=== PATIENT | female | born 1985 | race Caucasian/White ===

== ENCOUNTER 2017-09-30 13:21 | Inpatient (IN) | payer SELFPAY ==
[2017-09-30] MEDS ORDERED: hydrALAZINE 20 MG/ML VIAL. IVP (13:45)
[2017-09-30] MEDS: ONDANSETRON PF 4 MG/2 ML VIAL. IV ×2 (14:26→22:12)
[2017-09-30] MEDS: fentaNYL PF VIAL 100 MCG/2 ML VIAL IV ×2 (14:26→22:13)
[2017-09-30] MEDS: POTASSIUM CL 40MEQ IN 0.9%NACL 1,000 ML IV ×2 (14:44→22:39)
[2017-09-30] MEDS: PANTOPRAZOLE IV PUSH 40 MG VIAL. IVP (15:43)
[2017-09-30] MEDS: diphenhydrAMINE 50 MG/ML VIAL IVP (16:51)
[2017-09-30] MEDS: PROCHLORPERAZINE 10 MG/2 ML VIAL. IV (17:39)
[2017-10-01 04:41] LABS: ADD MAN DIFF? NO
[2017-10-01 05:09] LABS: BASO % 0 % (0-3); EOS # 0.1 x10^3/uL (0.0-0.7); EOS % 1 % (0-3); HEMATOCRIT 44.1 % (36.0-47.0); HEMOGLOBIN 15.4 g/dL (12.0-15.5); LYMPH # 3.5 x10^3/uL (1.0-4.8); LYMPH % 34 % (24-48); MEAN CORPUSCULAR HEMOGLOBIN 32 pg (25-35); MEAN CORPUSCULAR HGB CONC 35 g/dL (31-37); MEAN CORPUSCULAR VOLUME 91 fL (79-100); MONO % 10 % (0-9); NEUT # 5.5 x10^3uL (1.8-7.7); NEUT % 55 % (31-73); PLATELET COUNT 184 x10^3/uL (140-400); RED BLOOD COUNT 4.87 x10^6/uL (3.50-5.40); RED CELL DISTRIBUTION WIDTH 13.2 % (11.5-14.5); WHITE BLOOD COUNT 10.1 x10^3/uL (4.0-11.0)
[2017-10-01 06:01] LABS: ALBUMIN 3.4 g/dL (3.4-5.0); ALK PHOS 78 U/L (46-116); ALT (SGPT) 28 U/L (14-59); ANION GAP 13 (6-14); AST (SGOT) 23 U/L (15-37); BLOOD UREA NITROGEN 8 mg/dL (7-20); BUN/CREATININE RATIO 11 (6-20); CALCIUM 8.7 mg/dL (8.5-10.1); CARBON DIOXIDE 20 mmol/L (21-32); CHLORIDE 102 mmol/L (98-107); CREATININE 0.7 mg/dL (0.6-1.0); GFR 96.4; GLUCOSE 64 mg/dL (70-99); POTASSIUM 4.4 mmol/L (3.5-5.1); SODIUM 135 mmol/L (136-145); TOTAL BILIRUBIN 0.7 mg/dL (0.2-1.0); TOTAL PROTEIN 6.9 g/dL (6.4-8.2)
[2017-10-01] MEDS: ONDANSETRON PF 4 MG/2 ML VIAL. IV ×3 (06:32→16:59)
[2017-10-01] MEDS: fentaNYL PF VIAL 100 MCG/2 ML VIAL IV ×3 (06:32→21:06)
[2017-10-01] MEDS: POTASSIUM CL 40MEQ IN 0.9%NACL 1,000 ML IV ×2 (06:42→13:41)
[2017-10-01] MEDS: PANTOPRAZOLE IV PUSH 40 MG VIAL. IVP (07:30)
[2017-10-01 07:48] LABS: POC GLUCOSE 68 mg/dL (70-99)
[2017-10-01] MEDS: SINCALIDE 1.54 MCG in IV NORMAL SALINE 50ML 30 ML IV (10:00)
[2017-10-01] MEDS: PROCHLORPERAZINE 10 MG/2 ML VIAL. IV ×2 (13:16→19:50)
[2017-10-01] MEDS: METOCLOPRAMIDE HCL 10 MG/2 ML VIAL. IV (16:59)
[2017-10-02] MEDS: POTASSIUM CL 40MEQ IN 0.9%NACL 1,000 ML IV ×3 (01:11→16:51)
[2017-10-02] MEDS: ONDANSETRON PF 4 MG/2 ML VIAL. IV ×3 (06:48→19:51)
[2017-10-02] MEDS: fentaNYL PF VIAL 100 MCG/2 ML VIAL IV ×3 (06:49→19:51)
[2017-10-02] MEDS: PANTOPRAZOLE IV PUSH 40 MG VIAL. IVP (07:31)
[2017-10-02] MEDS: PROCHLORPERAZINE 10 MG/2 ML VIAL. IV (16:55)
[2017-10-03] MEDS: ONDANSETRON PF 4 MG/2 ML VIAL. IV (01:38)
[2017-10-03] MEDS: fentaNYL PF VIAL 100 MCG/2 ML VIAL IV ×2 (01:39→05:59)
[2017-10-03] MEDS: POTASSIUM CL 40MEQ IN 0.9%NACL 1,000 ML IV ×3 (01:40→10:02)
[2017-10-03] MEDS: PROCHLORPERAZINE 10 MG/2 ML VIAL. IV (06:00)
[2017-10-03 06:31] LABS: ANION GAP 7 (6-14); BLOOD UREA NITROGEN 4 mg/dL (7-20); CARBON DIOXIDE 25 mmol/L (21-32); CHLORIDE 104 mmol/L (98-107); CREATININE 0.8 mg/dL (0.6-1.0); GFR 82.6; GLUCOSE 103 mg/dL (70-99); POTASSIUM 4.3 mmol/L (3.5-5.1); SODIUM 136 mmol/L (136-145)
[2017-10-03] MEDS: PANTOPRAZOLE IV PUSH 40 MG VIAL. IVP (07:28)
== END 2017-10-03 10:18 | disposition home or self-care (01) | DRG 392 ==
LOC: 6 SOUTH 13:21
DX: K31.89 Other diseases of stomach and duodenum (principal); D72.829 Elevated white blood cell count, unspecified; F12.10 Cannabis abuse, uncomplicated; F17.210 Nicotine dependence, cigarettes, uncomplicated; F32.9 Major depressive disorder, single episode, unspecified; F41.9 Anxiety disorder, unspecified; J45.909 Unspecified asthma, uncomplicated; R11.2 Nausea with vomiting, unspecified; K21.9 Gastro-esophageal reflux disease without esophagitis; Z87.11 Personal history of peptic ulcer disease; Z82.49 Family history of ischemic heart disease and other diseases of the circulatory system; Z91.048 Other nonmedicinal substance allergy status; Z90.49 Acquired absence of other specified parts of digestive tract; Z71.51 Drug abuse counseling and surveillance of drug abuser
CPT/HCPCS: 36415; 76705; 78226; 80048; 80053; 82962; 85025; 96374; 96375; A9537; C9113; J0780; J1200; J2405; J2765; J2805; J3010; J3480

== ENCOUNTER 2018-09-04 18:35 | Inpatient (IN) | payer BC, SELFPAY ==
[~2018-09-04] VITALS: Ht 157.5 cm; Wt 69.0 kg
[~2018-09-04 18:35] MED LIST: FAMO40TA57 PO; LORA0.5T96 PO; MULT1TAB52 PO; OMEG1CAP6 PO; ONDA4TAB10 SL; PROM25SU32 RC; SUCR1TAB35 PO
[2018-09-04 20:30] VITALS: BP 170/94
--- NOTE | 2018-09-04 21:43 | NUR ---
The patient, JADA HUTSON, 33 y/o, F admitted by LANDON PALOMINO MD, was given written information regarding hospital policies, unit procedures and contact persons. Valuables were checked and left with patient.
[2018-09-04] MEDS ORDERED: MAGNESIUM HYDROXIDE 2,400 MG/30 ML ORAL.SUSP. PO PRN (21:45)
[2018-09-04] MEDS: ONDANSETRON PF 4 MG/2 ML VIAL. IV PRN (21:52)
[2018-09-04] MEDS: IV NORMAL SALINE 1000ML BAG 1,000 ML IV SCH (21:52)
[2018-09-04] MEDS ORDERED: OMEP20TA63 PO (22:02)
[2018-09-04] MEDS: KETOROLAC 15 MG/ML VIAL. IV PRN (22:08)
[2018-09-04] MEDS: LORazepam 0.5 MG TABLET PO PRN (22:08)
[2018-09-04] MEDS: HEPARIN for SUB-Q USE 5,000 UNIT/ML VIAL. SQ SCH (22:14)
[2018-09-04] MEDS: HYDROcodone/APAP 5/325MG 1 TAB TABLET PO PRN (22:52)
[2018-09-04 22:55] LABS: HEMATOCRIT 44.3 % (36.0-47.0); HEMOGLOBIN 15.4 g/dL (12.0-15.5); RED BLOOD COUNT 4.87 x10^6/uL (3.50-5.40); RED CELL DISTRIBUTION WIDTH 12.9 % (11.5-14.5); WHITE BLOOD COUNT 8.3 x10^3/uL (4.0-11.0)
[2018-09-04 23:00] VITALS: BP 167/101
[2018-09-04 23:06] LABS: CALCIUM 9.1 mg/dL (8.5-10.1); CREATININE 0.7 mg/dL (0.6-1.0); GFR 95.8; POTASSIUM 3.6 mmol/L (3.5-5.1)
[2018-09-05 03:00] VITALS: BP 119/73
[2018-09-05] MEDS: ONDANSETRON PF 4 MG/2 ML VIAL. IV PRN (03:10)
[2018-09-05] MEDS: HEPARIN for SUB-Q USE 5,000 UNIT/ML VIAL. SQ SCH (05:17)
[2018-09-05] MEDS: HYDROcodone/APAP 5/325MG 1 TAB TABLET PO PRN ×3 (06:38→22:12)
[2018-09-05 07:00] VITALS: BP 127/85
[2018-09-05] MEDS ORDERED: METOCLOPRAMIDE 5 MG TABLET. PO SCH (08:30)
[2018-09-05] MEDS: ONDANSETRON ODT 4 MG TAB.RAPDIS. PO SCH ×3 (08:40→22:12)
[2018-09-05] MEDS: LORazepam 0.5 MG TABLET PO SCH (08:41)
[2018-09-05] MEDS: DOCUSATE SODIUM 100 MG CAPSULE. PO SCH ×2 (08:42→20:51)
[2018-09-05] MEDS: SENNOSIDES/DOCUSATE 8.6/50MG TABLET. PO SCH ×2 (08:43→20:51)
--- NOTE | 2018-09-05 08:58 | PDOC1 ---
History and Physical Date of Admission Date of Admission DATE: 09/05/18 TIME: 08:53 Identification/Chief Complaint Chief Complaint Abdominal pain, vomiting-transfer from [facility] for need of GI expertise Source Source: Caregiver, Chart review, Patient History of Present Illness History of Present Illness SHe is a 33-year-old white female, as per chart, known history of cyclic vomiting syndrome and marijuana use. She claims she smoked marijuana few days ago because that helps transiently with her nausea/ vomiting. She was admitted at [facility] since Tuesday, spent the weekend there, but transferred here by hospitalist there for need of GI expertise and mention of an EGD. She had an EGD 5 or 6 years ago which showed perforated ulcer. She was a heavy a lcohol drinker then, not anymore now. Smokes a quarter pack a day. Labs are unremarkable. Still epigastric pain and claims some nausea vomiting but pancake consumed this breakfast. We'll consult GI as per reasons for transfer Past Medical History GI: GERD, Peptic Ulcer disease, Other (perf ulcer) Past Surgical History Past Surgical History: Other (egd 5-6 yrs ago) Family History Family History: Family History Unknown Social History Smoke: <1 pack per day ALCOHOL: other (quit) Drugs: Marijuana Current Medications Current Medications Current Medications Sodium Chloride 1,000 ml @ 75 mls/hr [id number] IV Last administered on 09/04/18at 21:52; Start 09/04/18 at 22:00 Ondansetron HCl (Zofran) 4 mg PRN Q4HRS PRN IV NAUSEA/VOMITING Last administered on 09/05/18at 03:10; Start 09/04/18 at 22:00 Acetaminophen/ Hydrocodone Bitart (Lortab 5/325) 1 tab PRN Q4HRS PRN PO MILD PAIN 1-3 Last administered on 09/05/18at 06:38; Start 09/04/18 at 21:45 Ketorolac Tromethamine (Toradol 15mg Vial) 15 mg PRN Q6HRS PRN IV PAIN Last administered on 09/04/18at 22:08; Start 09/04/18 at 21:45; Stop 09/09/18 at 21:44 Senna/Docusate Sodium (Senna Plus) 1 tab BID PO ; Start 09/05/18 at 09:00 Docusate Sodium (Colace) 100 mg BID PO ; Start 09/05/18 at 09:00 Magnesium Hydroxide (Milk Of Magnesia) 2,400 mg PRN Q12HR PRN PO CONSTIPATION; Start 09/04/18 at 21:45 Heparin Sodium (Porcine) (Heparin Sodium) 5,000 unit Q8HRS SQ Last administered on 09/05/18at 05:17; Start 09/04/18 at 22:00; Stop 09/05/18 at 08:08; Status DC Lorazepam (Ativan) 0.5 mg PRN BID PRN PO ANXIETY / AGITATION Last administered on 09/04/18at 22:08; Start 09/04/18 at 21:45 Lorazepam (Ativan) 0.5 mg DAILY PO Last administered on 09/05/18at 08:41; Start 09/05/18 at 09:00 Famotidine (Pepcid) 40 mg DAILY PO ; Start 09/05/18 at 09:00 Metoclopramide HCl (Reglan) 5 mg TIDACHC PO Last administered on 09/05/18at 08:41; Start 09/05/18 at 08:30 Fish Oil (Fish Oil) 1,000 mg DAILY PO ; Start 09/05/18 at 09:00 Ondansetron HCl (Zofran Odt) 4 mg Q8HRS PO Last administered on 09/05/18at 08:40; Start 09/05/18 at 08:30 Promethazine HCl (Phenergan Supp) 25 mg DAILY RC ; Start 09/05/18 at 09:00 Multivitamins (Thera M Plus) 1 tab DAILY PO ; Start 09/05/18 at 09:00 Pantoprazole Sodium (Protonix) 40 mg DAILYAC PO ; Start 09/05/18 at 09:00 Sucralfate (Carafate) 1 gm TID@1000,1400,2200 PO ; Start 09/05/18 at 10:00 Active Scripts Active Ativan (Lorazepam) 0.5 Mg Tablet 0.5 Mg PO DAILY 30 Days Phenergan (Promethazine HCl) 25 Mg Supp.rect 25 Mg RC DAILY 30 Days Carafate (Sucralfate) 1 Gm Tablet 1 Gm PO TID Ativan (Lorazepam) 0.5 Mg Tablet 0.5 Mg PO BID PRN Zofran Odt (Ondansetron) 4 Mg Tab.rapdis 1 Tab SL Q8HRS Reported Prilosec Otc (Omeprazole Magnesium) 20 Mg Tablet. 1 Tab PO DAILY Multivitamins (Multivitamin) 1 Each Tablet 1 Tab PO DAILY Pepcid (Famotidine) 40 Mg Tablet 40 Mg PO DAILY Fish Oil 1,000 Mg Capsule ([place]-3 Fatty Acids/Fish Oil) 1 Each Capsule 2 Each PO DAILY Allergies Allergies: Coded Allergies: Estrogens (Verified Allergy, Intermediate, 09/30/17) ROS Review of System As per history of present illness, the rest of ROS 14 point negative Physical Exam General: Alert, Oriented X3, Cooperative, No acute distress HEENT: Atraumatic, PERRLA, EOMI Lungs: Clear to auscultation, Normal air movement Heart: S1S2, RRR, no thrills, no rubs, no gallops, no murmurs Cardiovascular: S1, S2 Breasts: Normal, Rt breast nml w/o mass, Lt breast nml w/o mass, Nipples normal Abdomen: Soft, No masses, Other (tenderness epigastric area, no guarding, normoactive bowel sounds) Rectal Exam: not examined PELVIC: Nml ext genitalia Extremities: No clubbing, No cyanosis, No edema, Normal pulses, No tenderness/swelling Skin: No rashes, No breakdown, No significant lesion Neuro: Normal gait, Normal speech, Strength at 5/5 X4 ext, Normal tone, Sensation intact, Cranial nerves 3-12 NL, Reflexes 2+ Psych/Mental Status: Mental status NL, Mood NL Vitals Vitals Vital Signs Date Time Temp Pulse Resp B/P (MAP) Pulse Ox O2 Delivery O2 Flow Rate FiO2 09/05/18 07:40 Room Air 09/05/18 07:00 99.1 72 18 127/85 (99) 97 99.1 Labs Labs Laboratory Tests Test 09/04/18 22:45 White Blood Count 8.3 x10^3/uL (4.0-11.0) Red Blood Count 4.87 x10^6/uL (3.50-5.40) Hemoglobin 15.4 g/dL (12.0-15.5) Hematocrit 44.3 % (36.0-47.0) Mean Corpuscular Volume 91 fL (79-100) Mean Corpuscular Hemoglobin 32 pg (25-35) Mean Corpuscular Hemoglobin Concent 35 g/dL (31-37) Red Cell Distribution Width 12.9 % (11.5-14.5) Platelet Count 158 x10^3/uL (140-400) Sodium Level 133 mmol/L (136-145) Potassium Level 3.6 mmol/L (3.5-5.1) Chloride Level 100 mmol/L (98-107) Carbon Dioxide Level 24 mmol/L (21-32) Anion Gap 9 (6-14) Blood Urea Nitrogen 4 mg/dL (7-20) Creatinine 0.7 mg/dL (0.6-1.0) Estimated GFR (Cockcroft-Gault) 95.8 Glucose Level 103 mg/dL (70-99) Calcium Level 9.1 mg/dL (8.5-10.1) Laboratory Tests Test 09/04/18 22:45 White Blood Count 8.3 x10^3/uL (4.0-11.0) Red Blood Count 4.87 x10^6/uL (3.50-5.40) Hemoglobin 15.4 g/dL (12.0-15.5) Hematocrit 44.3 % (36.0-47.0) Mean Corpuscular Volume 91 fL (79-100) Mean Corpuscular Hemoglobin 32 pg (25-35) Mean Corpuscular Hemoglobin Concent 35 g/dL (31-37) Red Cell Distribution Width 12.9 % (11.5-14.5) Platelet Count 158 x10^3/uL (140-400) Sodium Level 133 mmol/L (136-145) Potassium Level 3.6 mmol/L (3.5-5.1) Chloride Level 100 mmol/L (98-107) Carbon Dioxide Level 24 mmol/L (21-32) Anion Gap 9 (6-14) Blood Urea Nitrogen 4 mg/dL (7-20) Creatinine 0.7 mg/dL (0.6-1.0) Estimated GFR (Cockcroft-Gault) 95.8 Glucose Level 103 mg/dL (70-99) Calcium Level 9.1 mg/dL (8.5-10.1) VTE Prophylaxis Ordered VTE Prophylaxis Devices: Yes VTE Pharmacological Prophylaxi: Yes Assessment/Plan Assessment/Plan Epigastric pain, history of perf ulcer 5-6 years ago by EGD ([facility]) Cyclic vomiting syndrome Marijuana use, recreational Previous alcohol drinker not anymore Occasional quarter of a pack smoker PLAN: Admit 2 mN GI consult PPI she claims she takes twice a day along with H2 antagonist twice a day I have reconciled home meds Nausea meds Supportive meds Discussed with her-agreeable with plan GEOFF STEINBERG MD September 05, 2018 08:58
[2018-09-05] MEDS ORDERED: FAMOTIDINE 20 MG TABLET. PO SCH (09:00)
[2018-09-05] MEDS ORDERED: PANTOPRAZOLE 40 MG TABLET.DR. PO SCH (09:00)
[2018-09-05] MEDS: OMEGA-3 FATTY ACIDS/FISH OIL 1,000 MG CAPSULE. PO SCH (09:43)
[2018-09-05] MEDS: SUCRALFATE 1 GM TABLET. PO SCH ×3 (09:43→22:12)
[2018-09-05] MEDS: MULTIVITAMIN with MINERAL TABLET. PO SCH (09:43)
[2018-09-05] MEDS: PANTOPRAZOLE 40 MG TABLET.DR. PO SCH ×2 (09:43→17:16)
[2018-09-05] MEDS: KETOROLAC 15 MG/ML VIAL. IV PRN ×2 (09:44→22:13)
[2018-09-05] MEDS: IV NORMAL SALINE 1000ML BAG 1,000 ML IV SCH (10:48)
[2018-09-05 11:01] VITALS: BP 125/76
--- NOTE | 2018-09-05 11:49 | PDOC2 ---
GI CONSULT Reason For Consult: Needs EGD hence transferred from [facility] HPI: HPI: 33 y/o female transferred from [facility]. Recurrent n/v every other month or so. Can last up to 3 weeks. Latest flare began >1 week ago. Tolerated half a bagel this morning. H/o daily marijuana use, made the decision to stop ~2 weeks ago but then smoked again last because it helps her symptoms. Typically vomits some small amounts of red blood - has not this time. However, reports diarrhea - "black tarry" once today and 4-5 times yesterday. Epigastrium is sore from retching - typical symptom. Has lost 20 pounds, can't go to work. Wonders if this could be GB related. H/o "perforated ulcer" on EGD @ [facility] in ~2014, was treated w/ Protonix and Carafate. Does not recall H. pylori and attributes ulcer to alcohol abuse. Also reports normal EGD @ [facility] in 2015. Continued issues w/ acid reflux - now taking Prilosec 20mg BID + Pepcid (instead of ranitidine) BID. RUQ US unrevealing 09/2017. HIDA done at that time - GB EF 40%. Reports previously normal GES (@ [facility]). No previous colonoscopy. Some issues w/ insurance - has been trying to establish PCP and FACTORY MAINTENANCE TECHNICIAN throughout the year and finally has an appointment w/ FACTORY MAINTENANCE TECHNICIAN on 09/25/18 - on Depo shot and reports n/v flares also seem related to menstural cycle. No NSAIDs. When we saw her last year, she reported marijuana holiday was ineffective. PMH: PMH: asthma, GERD, PUD, anxiety, depression "small intestine cyst" removal w/ appendectomy, STEPHANIE FH: Family History: Other Social History: Smoke: <1 pack per day ALCOHOL: other (heavy in the past, sober >1 year) Drugs: Marijuana ROS: GEN: Denies fevers, chills, sweats HEENT: Denies blurred vision, sore throat CV: Denies chest pain RESP: Denies shortness of air, cough GI: Per HPI : Denies hematuria, dysuria ENDO: +weight loss NEURO: Denies confusion, dizziness MSK: Denies weakness, joint pain/swelling SKIN: Denies jaundice, pruritus Vitals: Vitals: Vital Signs Date Time Temp Pulse Resp B/P (MAP) Pulse Ox O2 Delivery O2 Flow Rate FiO2 09/05/18 11:01 98.3 68 18 125/76 (92) 98 Room Air 98.3 Labs: Labs: Laboratory Tests Test 09/04/18 22:45 White Blood Count 8.3 x10^3/uL (4.0-11.0) Red Blood Count 4.87 x10^6/uL (3.50-5.40) Hemoglobin 15.4 g/dL (12.0-15.5) Hematocrit 44.3 % (36.0-47.0) Mean Corpuscular Volume 91 fL (79-100) Mean Corpuscular Hemoglobin 32 pg (25-35) Mean Corpuscular Hemoglobin Concent 35 g/dL (31-37) Red Cell Distribution Width 12.9 % (11.5-14.5) Platelet Count 158 x10^3/uL (140-400) Sodium Level 133 mmol/L (136-145) Potassium Level 3.6 mmol/L (3.5-5.1) Chloride Level 100 mmol/L (98-107) Carbon Dioxide Level 24 mmol/L (21-32) Anion Gap 9 (6-14) Blood Urea Nitrogen 4 mg/dL (7-20) Creatinine 0.7 mg/dL (0.6-1.0) Estimated GFR (Cockcroft-Gault) 95.8 Glucose Level 103 mg/dL (70-99) Calcium Level 9.1 mg/dL (8.5-10.1) Allergies: Coded Allergies: Estrogens (Verified Allergy, Intermediate, 09/30/17) Medications: Current Medications Medications (Trade) Dose Ordered Sig/Saleem Route PRN Reason Start Time Stop Time Status Last Admin Dose Admin Sodium Chloride 1,000 ml @ 75 mls/hr [id number] IV 09/04/18 22:00 09/05/18 10:48 Ondansetron HCl (Zofran) 4 mg PRN Q4HRS PRN IV NAUSEA/VOMITING 09/04/18 22:00 09/05/18 03:10 Acetaminophen/ Hydrocodone Bitart (Lortab 5/325) 1 tab PRN Q4HRS PRN PO MILD PAIN 1-3 09/04/18 21:45 09/05/18 06:38 Ketorolac Tromethamine (Toradol 15mg Vial) 15 mg PRN Q6HRS PRN IV PAIN 09/04/18 21:45 09/09/18 21:44 09/05/18 09:44 Heparin Sodium (Porcine) (Heparin Sodium) 5,000 unit Q8HRS SQ 09/04/18 22:00 09/05/18 08:08 DC 09/05/18 05:17 Lorazepam (Ativan) 0.5 mg PRN BID PRN PO ANXIETY / AGITATION 09/04/18 21:45 09/04/18 22:08 Lorazepam (Ativan) 0.5 mg DAILY PO 09/05/18 09:00 09/05/18 08:41 Metoclopramide HCl (Reglan) 5 mg TIDACHC PO 09/05/18 08:30 09/05/18 08:59 DC 09/05/18 08:41 Ondansetron HCl (Zofran Odt) 4 mg Q8HRS PO 09/05/18 08:30 09/05/18 08:40 PE: GEN: NAD HEENT: Atraumatic, PERRL LUNGS: CTAB HEART: RRR ABD: NABS, S/ND, mild epigastric discomfort EXTREMITY: No edema SKIN: No rashes, no jaundice NEURO/PSYCH: A & O 3 A/P: A/P: Recurrent n/v, upper abd pain, weight loss Black stools - normal Hgb, BUN 4 GERD, h/o ulcer +marijuana CRC screen - average risk -- Previous workup as above. Will review [facility] records w/ Dr. Chowdhury. ?cannabis hyperemesis - encouraged to stop marijuana Does have h/o ulcer and heartburn. Agree w/ PPI. Will review w/ Dr. Chowdhury. URSULA YORK September 05, 2018 11:49
[2018-09-05 15:00] VITALS: BP 107/73
[2018-09-05] MEDS: PROMETHAZINE 25 MG SUPP.RECT. RC SCH (15:03)
[2018-09-05 19:00] VITALS: BP 110/78
[2018-09-05] MEDS: LORazepam 0.5 MG TABLET PO PRN (22:12)
[2018-09-05 23:00] VITALS: BP 121/67
[2018-09-06] MEDS: IV NORMAL SALINE 1000ML BAG 1,000 ML IV SCH ×3 (00:21→21:12)
[2018-09-06 03:00] VITALS: BP 95/49
[2018-09-06] MEDS: ONDANSETRON ODT 4 MG TAB.RAPDIS. PO SCH ×3 (06:23→21:55)
[2018-09-06 07:00] VITALS: BP 114/51
[2018-09-06] MEDS: PROMETHAZINE 25 MG SUPP.RECT. RC SCH (09:00)
[2018-09-06] MEDS: OMEGA-3 FATTY ACIDS/FISH OIL 1,000 MG CAPSULE. PO SCH (09:00)
[2018-09-06] MEDS: DOCUSATE SODIUM 100 MG CAPSULE. PO SCH ×2 (09:00→21:00)
[2018-09-06] MEDS: SENNOSIDES/DOCUSATE 8.6/50MG TABLET. PO SCH ×2 (09:00→21:00)
[2018-09-06] MEDS ORDERED: IV RINGERS,LACTATED 1000ML 1,000 ML IV SCH (09:30)
[2018-09-06] MEDS ORDERED: fentaNYL PF VIAL 100 MCG/2 ML VIAL IV PRN ×2 (09:30)
[2018-09-06] MEDS ORDERED: MIDAZOLAM HCL/PF 2 MG/2 ML VIAL. IV PRN (09:30)
[2018-09-06] MEDS ORDERED: LIDOCAINE 1% PF 2 ML VIAL. ID PRN (09:30)
[2018-09-06 09:38] LABS: U PREG PATIENT NEGATIVE (NEG)
[2018-09-06] MEDS ORDERED: PROPOFOL 20 ML IV ONE (09:54)
--- NOTE | 2018-09-06 10:13 | PDOC4 ---
PROCEDURE Procedure EGD/biopsies Indication: Recurrent nausea and vomiting/abdominal pain Meds: per anesthesia Findings: E--Grade II-II esophagitis distally. GEJ at 35cm. G--Moderate amount of retained fluid, suctioned. Otherwise normal. D--Normal to second portion. --biopsies of antrum and fundus re: H.pylori. Kellee. well. IMP: Reflux esophagitis; appearance likely worse from repeated emesis. Delayed gastric emptying? REC: Continue PPI, symptomatic therapy. Await biopsies. GES; was normal historically, but fair amount of lliquid in stomach. Thanks. NADIYA STOKES MD September 06, 2018 10:13
--- NOTE | 2018-09-06 10:43 | PDOC ---
PROGRESS NOTES Chief Complaint Chief Complaint Assessment/Plan Epigastric pain, history of perf ulcer 5-6 years ago by EGD Cyclic vomiting syndrome Marijuana use, recreational Previous alcohol drinker not anymore Occasional quarter of a pack smoker PLAN: NPO today for EGD PPI she claims she takes twice a day along with H2 antagonist twice a day anti-nausea meds apprec GI dispo pending EGD results and GI recommendations. History of Present Illness History of Present Illness no vomiting since yesterday. last meal last night and tolerated. Vitals Vitals Vital Signs Date Time Temp Pulse Resp B/P (MAP) Pulse Ox O2 Delivery O2 Flow Rate FiO2 09/06/18 10:38 53 18 137/62 100 Room Air 09/06/18 10:08 97.2 2 97.2 Physical Exam General: Alert, Oriented X3, Cooperative, No acute distress Abdomen: Soft, No masses, Other (tenderness epigastric area, no guarding, normoactive bowel sounds) Extremities: No clubbing, No cyanosis, No edema, Normal pulses, No tenderness/swelling Skin: No rashes, No breakdown, No significant lesion Labs LABS Laboratory Tests Test 09/06/18 09:30 Urine Test Negative (NEG) Review of Systems Review of Systems CONSTITUTIONAL: No fever or chills EYES: No recent changes SKIN: No rash or itching CARDIOVASCULAR: No chest pain, syncope, palpitations, or edema RESPIRATORY: No SOB or cough GASTROINTESTINAL: No nausea, vomiting or abdominal pain NEUROLOGICAL: No headaches or weakness ENDOCRINE: No cold or heat intolerance GENITOURINARY: No urgency or frequency of urination MUSCULOSKELETAL: No back pain or joint pain LYMPHATICS: No enlarged lymph nodes PSYCHIATRIC: No anxiety or depression Comment Review of Relevant I have reviewed the following items campbell (where applicable) has been applied. Labs Laboratory Tests Test 09/04/18 22:45 09/06/18 09:30 White Blood Count 8.3 x10^3/uL (4.0-11.0) Red Blood Count 4.87 x10^6/uL (3.50-5.40) Hemoglobin 15.4 g/dL (12.0-15.5) Hematocrit 44.3 % (36.0-47.0) Mean Corpuscular Volume 91 fL (79-100) Mean Corpuscular Hemoglobin 32 pg (25-35) Mean Corpuscular Hemoglobin Concent 35 g/dL (31-37) Red Cell Distribution Width 12.9 % (11.5-14.5) Platelet Count 158 x10^3/uL (140-400) Sodium Level 133 mmol/L (136-145) Potassium Level 3.6 mmol/L (3.5-5.1) Chloride Level 100 mmol/L (98-107) Carbon Dioxide Level 24 mmol/L (21-32) Anion Gap 9 (6-14) Blood Urea Nitrogen 4 mg/dL (7-20) Creatinine 0.7 mg/dL (0.6-1.0) Estimated GFR (Cockcroft-Gault) 95.8 Glucose Level 103 mg/dL (70-99) Calcium Level 9.1 mg/dL (8.5-10.1) Urine Test Negative (NEG) Laboratory Tests Test 09/06/18 09:30 Urine Test Negative (NEG) Medications Current Medications Sodium Chloride 1,000 ml @ 75 mls/hr [id number] IV Last administered on 09/06/18at 00:21; Start 09/04/18 at 22:00 Ondansetron HCl (Zofran) 4 mg PRN Q4HRS PRN IV NAUSEA/VOMITING Last administered on 09/05/18at 03:10; Start 09/04/18 at 22:00 Acetaminophen/ Hydrocodone Bitart (Lortab 5/325) 1 tab PRN Q4HRS PRN PO MILD PAIN 1-3 Last administered on 09/05/18at 22:12; Start 09/04/18 at 21:45 Ketorolac Tromethamine (Toradol 15mg Vial) 15 mg PRN Q6HRS PRN IV PAIN Last administered on 09/05/18at 22:13; Start 09/04/18 at 21:45; Stop 09/09/18 at 21:44 Senna/Docusate Sodium (Senna Plus) 1 tab BID PO ; Start 09/05/18 at 09:00 Docusate Sodium (Colace) 100 mg BID PO ; Start 09/05/18 at 09:00 Magnesium Hydroxide (Milk Of Magnesia) 2,400 mg PRN Q12HR PRN PO CONSTIPATION; Start 09/04/18 at 21:45 Heparin Sodium (Porcine) (Heparin Sodium) 5,000 unit Q8HRS SQ Last administered on 09/05/18at 05:17; Start 09/04/18 at 22:00; Stop 09/05/18 at 08:08; Status DC Lorazepam (Ativan) 0.5 mg PRN BID PRN PO ANXIETY / AGITATION Last administered on 09/05/18at 22:12; Start 09/04/18 at 21:45 Lorazepam (Ativan) 0.5 mg DAILY PO Last administered on 09/05/18at 08:41; Start 09/05/18 at 09:00 Famotidine (Pepcid) 40 mg DAILY PO ; Start 09/05/18 at 09:00; Stop 09/05/18 at 09:00; Status DC Metoclopramide HCl (Reglan) 5 mg TIDACHC PO Last administered on 09/05/18at 08:41; Start 09/05/18 at 08:30; Stop 09/05/18 at 08:59; Status DC Fish Oil (Fish Oil) 1,000 mg DAILY PO ; Start 09/05/18 at 09:00 Ondansetron HCl (Zofran Odt) 4 mg Q8HRS PO Last administered on 09/06/18at 06:23; Start 09/05/18 at 08:30 Promethazine HCl (Phenergan Supp) 25 mg DAILY RC ; Start 09/05/18 at 09:00 Multivitamins (Thera M Plus) 1 tab DAILY PO ; Start 09/05/18 at 09:00 Pantoprazole Sodium (Protonix) 40 mg DAILYAC PO ; Start 09/05/18 at 09:00; Stop 09/05/18 at 09:00; Status DC Sucralfate (Carafate) 1 gm TID@1000,1400,2200 PO Last administered on 09/05/18at 22:12; Start 09/05/18 at 10:00 Pantoprazole Sodium (Protonix) 40 mg BIDAC PO Last administered on 09/05/18at 17:16; Start 09/05/18 at 09:00 Midazolam HCl (Versed) 2 mg PRN 1X PRN IV PRIOR TO PROCEDURE; Start 09/06/18 at 09:30; Stop 09/06/18 at 15:00 Fentanyl Citrate (Fentanyl 2ml Vial) 25 mcg PRN Q5MIN PRN IV X 2 DOSES FOR PAIN; Start 09/06/18 at 09:30; Stop 09/06/18 at 15:00 Fentanyl Citrate (Fentanyl 2ml Vial) 50 mcg PRN Q5MIN PRN IV X 2 DOSES FOR PAIN; Start 09/06/18 at 09:30; Stop 09/06/18 at 15:00 Ringer's Solution 1,000 ml @ 125 mls/hr Q8H IV Last administered on 09/06/18at 09:39; Start 09/06/18 at 09:30; Stop 09/06/18 at 15:00 Lidocaine HCl (Xylocaine-Mpf 1% 2ml Vial) 2 ml 1X PRN PRN ID IV START; Start 09/06/18 at 09:30; Stop 09/06/18 at 15:00 Propofol 20 ml @ As Directed STK-MED ONCE IV ; Start 09/06/18 at 09:54; Stop 09/06/18 at 09:55; Status DC Active Scripts Active Ativan (Lorazepam) 0.5 Mg Tablet 0.5 Mg PO DAILY 30 Days Phenergan (Promethazine HCl) 25 Mg Supp.rect 25 Mg RC DAILY 30 Days Carafate (Sucralfate) 1 Gm Tablet 1 Gm PO TID Ativan (Lorazepam) 0.5 Mg Tablet 0.5 Mg PO BID PRN Zofran Odt (Ondansetron) 4 Mg Tab.rapdis 1 Tab SL Q8HRS Reported Prilosec Otc (Omeprazole Magnesium) 20 Mg Tablet.dr 1 Tab PO DAILY Multivitamins (Multivitamin) 1 Each Tablet 1 Tab PO DAILY Pepcid (Famotidine) 40 Mg Tablet 40 Mg PO DAILY Fish Oil 1,000 Mg Capsule ([place]-3 Fatty Acids/Fish Oil) 1 Each Capsule 2 Each PO DAILY Vitals/I & O Vital Sign - Last 24 Hours 09/05/18 09/05/18 09/05/18 09/05/18 11:01 14:01 15:00 15:05 Temp 98.3 98.3 98.3 98.3 Pulse 68 66 Resp 18 18 B/P (MAP) 125/76 (92) 107/73 (84) Pulse Ox 98 100 O2 Delivery Room Air Room Air Room Air Room Air 09/05/18 09/05/18 09/06/18 09/06/18 19:00 23:00 03:00 07:00 Temp 98.0 98.6 98.4 98.5 98.0 98.6 98.4 98.5 Pulse 69 58 66 66 Resp 18 18 18 17 B/P (MAP) 110/78 (89) 121/67 (85) 95/49 (64) 114/51 (72) Pulse Ox 100 99 98 98 O2 Delivery Room Air Room Air Room Air Room Air 09/06/18 09/06/18 09/06/18 09/06/18 09:31 09:36 10:08 10:23 Temp 97.7 97.2 97.7 97.2 Pulse 63 59 53 Resp 18 18 18 B/P (MAP) 114/67 117/88 Pulse Ox 100 100 100 O2 Delivery Room Air Nasal Cannula Room Air O2 Flow Rate 2 09/06/18 10:38 Pulse 53 Resp 18 B/P (MAP) 137/62 Pulse Ox 100 O2 Delivery Room Air Intake and Output 09/05/18 09/05/18 09/06/18 15:00 23:00 07:00 Intake Total 780 ml 1000 ml Balance 780 ml 1000 ml LANDON PALOMINO MD September 06, 2018 10:43
[2018-09-06] MEDS: MULTIVITAMIN with MINERAL TABLET. PO SCH (12:03)
[2018-09-06] MEDS: PANTOPRAZOLE 40 MG TABLET.DR. PO SCH ×2 (12:03→17:03)
[2018-09-06] MEDS: LORazepam 0.5 MG TABLET PO SCH (12:03)
[2018-09-06] MEDS: SUCRALFATE 1 GM TABLET. PO SCH ×3 (12:04→21:55)
[2018-09-06] MEDS: KETOROLAC 15 MG/ML VIAL. IV PRN ×2 (12:05→21:55)
[2018-09-06 15:00] VITALS: BP 122/74
--- NOTE | 2018-09-06 16:15 | NUR ---
SW following pt for dc needs. Chart reviewed and no dc needs noted at this time.
[2018-09-06] MEDS: HYDROcodone/APAP 5/325MG 1 TAB TABLET PO PRN ×2 (17:04→21:13)
[2018-09-06 19:00] VITALS: BP 114/69
[2018-09-06 23:00] VITALS: BP 118/67
[2018-09-07 03:00] VITALS: BP 95/52
[2018-09-07] MEDS: ONDANSETRON ODT 4 MG TAB.RAPDIS. PO SCH (06:00)
[2018-09-07 07:00] VITALS: BP 90/38
[2018-09-07] MEDS: PANTOPRAZOLE 40 MG TABLET.DR. PO SCH (07:30)
[2018-09-07] MEDS: LORazepam 0.5 MG TABLET PO SCH (09:00)
[2018-09-07] MEDS: DOCUSATE SODIUM 100 MG CAPSULE. PO SCH (09:00)
[2018-09-07] MEDS: SENNOSIDES/DOCUSATE 8.6/50MG TABLET. PO SCH (09:00)
[2018-09-07] MEDS: PROMETHAZINE 25 MG SUPP.RECT. RC SCH (09:00)
[2018-09-07] MEDS: OMEGA-3 FATTY ACIDS/FISH OIL 1,000 MG CAPSULE. PO SCH (09:00)
[2018-09-07] MEDS: MULTIVITAMIN with MINERAL TABLET. PO SCH (09:00)
[2018-09-07] MEDS: SUCRALFATE 1 GM TABLET. PO SCH (10:00)
[2018-09-07] MEDS ORDERED: SUCR1TAB35 PO (10:41)
[2018-09-07] MEDS ORDERED: ONDA4TAB12 PO (10:41)
[2018-09-07] MEDS ORDERED: Pantoprazole PO (10:41)
[2018-09-07 11:00] VITALS: BP 104/52
--- NOTE | 2018-09-07 13:29 | RAD ---
Radionuclide gastric emptying study, 09/07/2018: HISTORY: Retained fluid on EGD, recurrent nausea and vomiting The study was performed utilizing a solid test meal radiolabeled with 2 mCi of technetium 99m sulfur colloid. The following gastric retention values were obtained: 1 hour-62 percent 2 hours-38 percent 3.5 hours 1 percent These values are in the normal range. IMPRESSION: Normal gastric emptying study. Electronically signed by: Thomas Parikh MD (09/07/2018 1:26 PM) [facility]
--- NOTE | 2018-09-07 13:39 | PDOC ---
Subjective: Subjective: Feeling better, tolerating PO. Objective: Vital Signs: Vital Signs Date Time Temp Pulse Resp B/P (MAP) Pulse Ox O2 Delivery O2 Flow Rate FiO2 09/07/18 11:00 98.6 59 104/52 (69) 100 Room Air 98.6 09/07/18 07:00 18 09/06/18 10:08 2 Imaging: GES 09/07 1 hour-62 percent 2 hours-38 percent 3.5 hours 1 percent These values are in the normal range. IMPRESSION: Normal gastric emptying study. EGD 09/06 E--Grade II-II esophagitis distally. GEJ at 35cm. G--Moderate amount of retained fluid, suctioned. Otherwise normal. D--Normal to second portion. --biopsies of antrum and fundus re: H.pylori. IMP: Reflux esophagitis; appearance likely worse from repeated emesis. Delayed gastric emptying? PE: GEN: NAD - eating lunch LUNGS: CTAB HEART: RRR ABD: S/ND/NT NEURO/PSYCH: A & O 3 A/P: Recurrent n/v, upper abd pain, weight loss GERD +marijuana -- GES normal. Continue PPI for GERD. Stop marijuana. DC per primary. Follow-up on biopsy results. URSULA YORK September 07, 2018 13:39
--- NOTE | 2018-09-07 13:41 | NUR ---
pt discharged home with elicia. meds and follow up reviewed. pt stable upon DC
--- NOTE | 2018-09-07 15:35 | PDOC3 ---
Discharge Summary Visit Information Date of Admission: September 04, 2018 Date of Discharge: September 07, 2018 Final Diagnosis NAUSEA AND VOMITING Brief Hospital Course Allergies Allergies Coded Allergies Type Severity Reaction Last Updated Verified Estrogens Allergy Intermediate 09/06/18 Yes Vital Signs Vital Signs Date Time Temp Pulse Resp B/P (MAP) Pulse Ox O2 Delivery O2 Flow Rate FiO2 09/07/18 11:00 98.6 59 104/52 (69) 100 Room Air 98.6 09/07/18 07:00 18 09/06/18 10:08 2 Lab Results Laboratory Tests Test 09/06/18 09:30 Urine Test Negative (NEG) Brief Hospital Course 33-year-old white female, as per chart, known history of cyclic vomiting syndrome and marijuana use. She claims she smoked marijuana few days ago because that helps transiently with her nausea/ vomiting. She was admitted at [facility] since Tuesday, spent the weekend there, but transferred here by hospitalist there for need of GI expertise and mention of an EGD. She had an EGD 5 or 6 years ago which showed perforated ulcer. She was a heavy alcohol drinker then, not anymore now. Smokes a quarter pack a day. Labs are unremarkable. hospitalist called for admission. patient admitted for Epigastric pain, history of perf ulcer 5-6 years ago by EGD suspect secondary to cyclic vomiting syndrome/GERD. GI consulted who performed EGD. EGD 09/06: E--Grade II-II esophagitis distally. GEJ at 35cm. G--Moderate amount of retained fluid, suctioned. Otherwise normal. D--Normal to second portion. --biopsies of antrum and fundus re: H.pylori. IMP: Reflux esophagitis; appearance likely worse from repeated emesis. Delayed gastric emptying? patient then had GES 09/07 1 hour-62 percent 2 hours-38 percent 3.5 hours 1 percent These values are in the normal range. IMPRESSION: Normal gastric emptying study. patient was continued on PPI therapy. advised to stop smoking marijuana. patient requested narcotics but not given. have stopped H2 kevin and switched patients PPI to protonix. nausea vomiting resolved at time of discharge. she was given a script for zofran prn. she was discharged home in stale condition and has scheduled follow up with PCP next week. Discharge Information Condition at Discharge: Improved Follow Up: Weeks (NEXT WEEK WITH PCP) Disposition/Orders: D/C to Home Scheduled Lorazepam (Ativan) 0.5 Mg Tablet, 0.5 MG PO DAILY for 30 Days, #30 Ref 1 Prescribed by: CHULA CHAUDHARI on 10/03/1742 Last Action: Continued on 09/04/182147 by LANDON PALOMINO MD Multivitamin (Multivitamins) 1 Each Tablet, 1 TAB PO DAILY, #90 Ref 3 (Reported) Entered as Reported by: DOMINIQUE PEARSON on 03/27/161511 Last Action: Converted on 09/05/18807 by GEOFF STEINBERG Kountze-3 Fatty Acids/Fish Oil (Fish Oil 1,000 Mg Capsule) 1 Each Capsule, 2 EACH PO DAILY, (Reported) Entered as Reported by: DOMINIQUE PEARSON on 03/27/161511 Last Action: Continued on 09/05/18807 by GEOFF STEINBERG Ondansetron (Ondansetron Odt) 4 Mg Tab.rapdis, 4 MG PO Q8HRS for vomiting for 5 Days, #15 Prescribed by: LANDON PALOMINO MD on 09/07/18 1041 Promethazine HCl (Phenergan) 25 Mg Supp.rect, 25 MG RC DAILY for 30 Days, #30 Ref 5 Prescribed by: CHULA CHAUDHARI on 10/03/1741 Last Action: Continued on 09/05/18807 by GEOFF STEINBERG Sucralfate (Carafate) 1 Gm Tablet, 1 GM PO TID for gastritis for 5 Days, #15 Prescribed by: LANDON PALOMINO MD on 09/07/18 1041 [Pantoprazole] 40 MG TABLET.DR, 40 MG PO BIDAC for 14 Days, #28 Prescribed by: LANDON PALOMINO MD on 09/07/181040 Scheduled PRN Lorazepam (Ativan) 0.5 Mg Tablet, 0.5 MG PO BID PRN for ANXIETY / AGITATION, #40 Prescribed by: AMANDA MANNING on 03/28/161047 Last Action: Continued on 09/04/182147 by LANDON PALOMINO MD Discontinued Medications Famotidine (Pepcid) 40 Mg Tablet, 40 MG PO DAILY, (Reported) Entered as Reported by: DOMINIQUE PEARSON on 03/27/161511 Last Action: Converted on 09/04/182147 by LANDON PALOMINO MD Omeprazole Magnesium (Prilosec Otc) 20 Mg Tablet.dr, 1 TAB PO DAILY for ., #30 Ref 3 (Reported) Entered as Reported by: ELIZABETH BUCKNER RN on 09/04/182201 Last Action: Converted on 09/05/18807 by GEOFF STEINBERG Ondansetron (Zofran Odt) 4 Mg Tab.rapdis, 1 TAB SL Q8HRS, #20 Prescribed by: AMANDA MANNING on 03/28/16 1048 Last Action: Continued on 09/05/18807 by LANDON HEARD MD September 07, 2018 15:35
--- NOTE | 2018-09-07 16:07 | PATHOLOGY ---
[facility] Accession Number: [id number] . 01 Material submitted: . PART A: stomach - ANTRUM BIOPSY PART B: stomach - FUNDUS BIOPSY. Modifiers: fundus . 01 Clinical history: . Pre-OP DX: Nausea with vomiting Post-OP DX: Reflux esophagitis . 02 Diagnosis: A. Gastric biopsies, antrum: - Chronic gastritis, mild. . B. Gastric biopsies, fundus: - Mild superficial chronic gastritis. . (JPM:mm; 09/07/2018) [facility]/09/07/2018 . 02 Comment: Sections of the gastric antral biopsy reveal segments of gastric antral and antral/body transition mucosa showing congestion and mild chronic inflammation. A properly-controlled immunoperoxidase stain for Helicobacter is negative for Helicobacter organisms. . Sections of the gastric fundus biopsy reveal segments of gastric body mucosa showing congestion and very mild superficial chronic inflammation. A properly-controlled immunoperoxidase stain for Helicobacter is negative for Helicobacter organisms. . Special stains performed: Immunoperoxidase stains for Helicobacter on A1 and B1. . (JPM:mm; 09/07/2018) . 02 Electronically signed: . Navdeep Vela MD, Pathologist NPI- [id number] . 01 Gross description: . A. Received in formalin labeled "Martha Prakash, antrum BX," are 2 segments of quick soft tissue measuring 1.5 x 0.2 x 0.2 cm in aggregate dimensions and ranging from 0.7 to 0.5 cm in maximum dimension. The specimen is submitted entirely in cassette A1. . B. Received in formalin labeled "Martha Prakash, BX fundus," are 2 segments of quick soft tissue measuring 1.1 x 0.2 x 0.2 cm in aggregate dimensions and ranging from 0.4 to 0.8 cm in maximum dimension. The specimen is submitted entirely in cassette B1. (TSD; 09/06/2018) TOB/TOB . 02 Pathologist provided ICD-10: K29.50 . 02 CPT . 166292, 225098, [id number] Specimen Comment: A courtesy copy of this report has been sent to Specimen Comment: [phone], . Specimen Comment: Report sent to / DR PALOMINO Performed at: [address] [id number] MD Sunday Valenzuela MD Phone: [phone] Performed at: 02 [facility] [address] [place] [id number] MD Navdeep Vela MD Phone: [phone]
== END 2018-09-07 13:48 | disposition home or self-care (01) | DRG 392 ==
LOC: 5 NORTH 18:35
PROVIDERS: ADMIT Internal Medicine; ATTEND Internal Medicine
PROC: 0DB68ZX Excision of Stomach, Via Natural or Artificial Opening Endoscopic, Diagnostic (ICD-10-PCS; principal; 2018-09-06 10:00)
DX: K21.0 Gastro-esophageal reflux disease with esophagitis (principal); K31.89 Other diseases of stomach and duodenum; F12.90 Cannabis use, unspecified, uncomplicated; F17.210 Nicotine dependence, cigarettes, uncomplicated; R11.11 Vomiting without nausea; F41.9 Anxiety disorder, unspecified; F32.9 Major depressive disorder, single episode, unspecified; J45.909 Unspecified asthma, uncomplicated; Z87.11 Personal history of peptic ulcer disease; Z88.8 Allergy status to other drugs, medicaments and biological substances
CPT/HCPCS: 36415; 43239; 78264; 80048; 81025; 85027; 88305; 88342; A9541; J1644; J1885; J2405; J2704; J7030; J7120; J8597; Q0162